=== PATIENT | female | born 1990 ===

== ENCOUNTER 2016-11-25 12:29 | Emergency (ER) | payer OTHER ==
[2016-11-25 12:37] VITALS: BP 110/59; PULSE 90; RESP 20; TEMP 97; O2SAT 100
--- NOTE | 2016-11-25 13:09 | ED PDOC ---
HPI: CCC, URI, Sore Throat Time Seen by Provider: 11/25/16 12:44 Chief Complaint (Nursing): ENT Problem Chief Complaint (Provider): ENT Problem History Per: Patient History/Exam Limitations: no limitations Onset/Duration Of Symptoms: Days (x1) Additional Complaint(s): Shahrzad Cevallos, 26 year old female presents to the ED on 11/25/16 for throat pain occurring for 1 day prior to arrival. She reports waking up this morning with difficulty swallowing. The patient has not taken any medications for this, has no pertinent past medical history, and no known drug allergies. Past Medical History Reviewed: Historical Data, Nursing Documentation, Vital Signs Vital Signs: Last Vital Signs Temp 97 F L 11/25/16 12:33 Pulse 90 11/25/16 12:33 Resp 20 11/25/16 12:33 BP 110/59 L 11/25/16 12:33 Pulse Ox 100 11/25/16 13:11 - Medical History PMH: No Chronic Diseases - Surgical History Surgical History: No Surg Hx - Family History Family History: States: Unknown Family Hx - Social History Current smoker - smoking cessation education provided: No Ex-Smoker (has not smoked in the last 12 months): No Alcohol: None Drugs: Denies - Home Medications Home Medications: Ambulatory Orders Medication Instructions Recorded Dicyclomine [Bentyl] 20 mg PO Q12 PRN #20 tab 10/24/14 Ondansetron [Zofran Odt] 4 mg PO Q6 PRN #12 odt 10/24/14 Polymyxin/Trimethoprim Sulfate 1 drop OS Q6 #1 bottle 02/17/15 [Polytrim Ophth Soln] Nitrofurantoin Macrocrystals 100 mg PO BID #14 cap 08/20/15 [Macrobid] Amoxicillin 875 mg PO BID #20 tab 11/25/16 Prednisone 50 mg PO ONCE #1 tablet 11/25/16 - Allergies Allergies/Adverse Reactions: Allergies Allergy/AdvReac Type Severity Reaction Status Date / Time No Known Allergies Allergy Verified 10/23/14 21:51 Review of Systems ROS Statement: Except As Marked, All Systems Reviewed And Found Negative Constitutional: Negative for: Fever, Chills ENT: Positive for: Throat Pain (and difficulty swallowing) Respiratory: Positive for: Cough Gastrointestinal: Negative for: Nausea, Vomiting Physical Exam - Reviewed Nursing Documentation Reviewed: Yes Vital Signs Reviewed: Yes - Physical Exam Appears: Positive for: Non-toxic, No Acute Distress Head Exam: Positive for: ATRAUMATIC, NORMAL INSPECTION, NORMOCEPHALIC Skin: Positive for: Normal Color Eye Exam: Positive for: Normal appearance ENT: Positive for: Tonsillar Exudate, Other (uvula midline ). Negative for: Normal ENT Inspection Cardiovascular/Chest: Positive for: Regular Rate, Rhythm Respiratory: Positive for: Normal Breath Sounds. Negative for: Accessory Muscle Use, Respiratory Distress Back: Positive for: Normal Inspection Extremity: Positive for: Normal ROM Neurologic/Psych: Positive for: Alert, Oriented, Gait - ECG O2 Sat by Pulse Oximetry: 100 (RA) Pulse Ox Interpretation: Normal Medical Decision Making Medical Decision Making: Initial Impression: Throat Pain Disposition - Clinical Impression Clinical Impression: Strep pharyngitis - Patient ED Disposition Is Patient to be Admitted: No Counseled Patient/Family Regarding: Diagnosis, Need For Followup, Rx Given - Disposition Disposition: Routine/Home Disposition Time: 13:06 Condition: STABLE Prescriptions: Amoxicillin 875 mg PO BID #20 tab Prednisone 50 mg PO ONCE #1 tablet Instructions: Pharyngitis (ED) Forms: [facility] ED School/Work Excuse
== END 2016-11-25 14:11 | disposition home or self-care (01) ==
LOC: H.ER 12:29
DX: J02.0 Streptococcal pharyngitis (principal); R13.10 Dysphagia, unspecified; Z87.891 Personal history of nicotine dependence

== ENCOUNTER 2018-01-02 12:32 | Emergency (ER) | payer OTHER ==
[2018-01-02 12:58] VITALS: RESP 18; O2SAT 99
[2018-01-02] MEDS ORDERED: Naproxen 500 MG TAB PO STA (13:22)
[2018-01-02] MEDS ORDERED: Naproxen 500 MG TAB PO ONE (13:29)
--- NOTE | 2018-01-02 13:32 | ED PDOC ---
HPI: CCC, URI, Sore Throat Time Seen by Provider: 01/02/18 13:07 Chief Complaint (Nursing): ENT Problem Chief Complaint (Provider): ENT Problem History Per: Patient History/Exam Limitations: no limitations Onset/Duration Of Symptoms: Days (x2) Current Symptoms Are (Timing): Still Present Location Of Pain: Throat Sick Contacts (Context): Friend(s) (Girlfriend) Additional Complaint(s): 27 y/o female with no PMHx presents to the ED complaining of sore throat, onset two days ago. Patient reports girlfriend is sick with similar symptoms and also being evaluated in ED for the same complaint. Patient reports of pain on swallowing saliva. No medications were taken [employer]. Otherwise:(-) fever, (-) chills, (-) ear pain, (-) cough, (-) headache, (-) shortness of breath, (-) nausea, (-) vomiting, (-) diarrhea, (-) abdominal pain, (-) rash, (-) other complaints at this time. LNMP: 12/26/2017 PMD: None Past Medical History Reviewed: Historical Data, Nursing Documentation, Vital Signs Vital Signs: Last Vital Signs Temp 98 F 01/02/18 14:48 Pulse 76 01/02/18 14:48 Resp 18 01/02/18 14:48 BP 122/78 01/02/18 14:48 Pulse Ox 99 01/03/18 16:37 - Medical History PMH: No Chronic Diseases - Surgical History Surgical History: No Surg Hx - Family History Family History: States: Unknown Family Hx - Social History Current smoker - smoking cessation education provided: Yes (8-9 cigarettes per day) - Home Medications Home Medications: Ambulatory Orders Medication Instructions Recorded Dicyclomine [Bentyl] 20 mg PO Q12 PRN #20 tab 10/24/14 Ondansetron [Zofran Odt] 4 mg PO Q6 PRN #12 odt 10/24/14 Polymyxin/Trimethoprim Sulfate 1 drop OS Q6 #1 bottle 02/17/15 [Polytrim Ophth Soln] Nitrofurantoin Macrocrystals 100 mg PO BID #14 cap 08/20/15 [Macrobid] Amoxicillin 875 mg PO BID #20 tab 11/25/16 Prednisone 50 mg PO ONCE #1 tablet 11/25/16 Naproxen 500 mg PO BID PRN #20 tab 01/02/18 - Allergies Allergies/Adverse Reactions: Allergies Allergy/AdvReac Type Severity Reaction Status Date / Time No Known Allergies Allergy Verified 10/23/14 21:51 Review of Systems ROS Statement: Except As Marked, All Systems Reviewed And Found Negative Constitutional: Negative for: Fever, Chills ENT: Positive for: Throat Pain, Throat Swelling. Negative for: Ear Pain Respiratory: Negative for: Cough, Shortness of Breath Gastrointestinal: Negative for: Nausea, Vomiting, Abdominal Pain, Diarrhea Skin: Negative for: Rash Physical Exam - Reviewed Nursing Documentation Reviewed: Yes Vital Signs Reviewed: Yes - Physical Exam Comments: GENERAL APPEARANCE: Patient is resting comfortably, awake, alert, oriented x 3, in no acute distress. SKIN: Warm, dry; (-) cyanosis. EYES: (-) conjunctival pallor. EOMI and painless. ENMT: Canals : (-) cerumen impaction (-) exudate or erythema; TMs: (-) bulging and (-) erythema, (-)effusion, (-) perforation,(-) vesicles. Frontal / maxillary sinuses : (-) tenderness. (-) TMJ tenderness. Pharynx: (+) erythema, (-) exudate (-) hypertrophy. Uvula midline. Airway patent: (-) stridor (-) drooling NECK: Full ROM, (+) supple, (-) stiffness, (-) tenderness, (+) 1 cm x 1 cm mobile mildly tender lymph node to the left anterior cervical chain. CHEST AND RESPIRATORY: (-) rhonchi, (-) rales, (-) wheezes; breath sounds equal bilaterally. Respirations even and nonlabored, speaking in full sentences. HEART AND CARDIOVASCULAR: (-) irregularity EXTREMITIES: (-) deformity NEURO AND PSYCH: Mental status as above. Cranial nerves grossly intact; strength symmetric. Gait steady. Speech clear. - ECG O2 Sat by Pulse Oximetry: 99 (RA) Pulse Ox Interpretation: Normal Medical Decision Making Medical Decision Making: Time: 1325 Impression: Pharyngitis Plan: -- Naproxen 500 mg PO -- Throat Culture -- Rapid Strep Group A Antign -- Re-evaluation 1425 Rapid Strep: Negative On re-evaluation, patient reports improvement of symptoms. On exam, patient remains AAOx3, in no acute distress. On exam, neck is supple, lungs CTA, cardiac RRR, neuro exam shows no focal findings. VSS, stable for discharge. Salt water gargles encouraged. Diagnostic results d/w the patient in great detail. Dx of pharyngitis d/w the patient. Based on history, exam and diagnostic results plan will be for discharge. Advised to follow up with primary care physician in 1-2 days without fail. Advised to take medication as prescribed. Return to the emergency room at any time for any new or worsening symptoms. Patient states she fully agrees with and understands discharge instructions. States that she agrees with the plan and disposition. Verbalized and repeated discharge instructions and plan. I have given the patient opportunity to ask any additional questions. Scribe Attestation: Documented by Fabio Calvillo, acting as a scribe for Ying Bond PA-C. Provider Scribe Attestation: All medical record entries made by the Scribe were at my direction and personally dictated by me. I have reviewed the chart and agree that the record accurately reflects my personal performance of the history, physical exam, medical decision making, and the department course for this patient. I have also personally directed, reviewed, and agree with the discharge instructions and disposition. Disposition - Clinical Impression Clinical Impression: Pharyngitis - Patient ED Disposition Is Patient to be Admitted: No Counseled Patient/Family Regarding: Studies Performed, Diagnosis, Need For Followup, Rx Given - Disposition Referrals: [facility] [Outside] Disposition: Routine/Home Disposition Time: 14:27 Condition: STABLE Additional Instructions: The emergency medical care you received today was directed at your acute symptoms. If you were prescribed any medication, please fill it and take as directed. It may take several days for your symptoms to resolve. Return to the Emergency Department if your symptoms worsen, do not improve, or if you have any other problems. Please contact your doctor in 2 days for re-evaluation and follow up / or call one of the physicians/clinics you have been referred to that are listed on the Patient Visit Information form that is included in your discharge packet. Bring any paperwork you were given at discharge with you along with any medications you are taking to your follow up visit. Our treatment cannot replace ongoing medical care by a primary care provider (PCP) outside of the emergency department. Prescriptions: Naproxen 500 mg PO BID PRN #20 tab PRN Reason: Pain, Moderate (4-7) Instructions: Viral Pharyngitis, Sore Throat in Adults Forms: [employer] (Y[place]i) Print Language: VINCENTIAN - POA Present On Arrival: None Results - Lab Results Lab Results: 01/02/18 13:00 Grp A Beta Strep Ag Negative
[2018-01-02 14:49] VITALS: BP 122/78; PULSE 76; TEMP 98
== END 2018-01-02 14:35 | disposition home or self-care (01) ==
LOC: H.ER 12:32
DX: J02.9 Acute pharyngitis, unspecified (principal)

== ENCOUNTER 2018-07-26 18:49 | Emergency (ER) | payer OTHER ==
[2018-07-26 19:49] VITALS: BP 110/72; PULSE 94; RESP 16; TEMP 98.1; O2SAT 98
--- NOTE | 2018-07-26 20:42 | ED PDOC ---
HPI: Influenza Time Seen by Provider: 07/26/18 20:26 Chief Complaint: Cough, Cold, Congestion Chief Complaint (Provider): Cough, Cold, Congestion History Per: Patient Exam Limitations: no limitations Onset/Duration Of Symptoms: Days (x2) Additional complaint(s):: Patient is a 27 y/o female with no significant PMHx who presents to the ED for evaluation of nasal congestion and a runny nose for the past two days. Patient reports pressure around her nose and teeth pain. Patient denies fever and ear pain. PCP: None Provided Past Medical History Reviewed: Historical Data, Nursing Documentation, Vital Signs Vital Signs: Last Vital Signs Temp 98.1 F 07/26/18 19:47 Pulse 94 H 07/26/18 19:47 Resp 16 07/26/18 19:47 BP 110/72 07/26/18 19:47 Pulse Ox 98 07/26/18 19:47 - Medical History PMH: No Chronic Diseases - Surgical History Surgical History: No Surg Hx - Family History Family History: States: Unknown Family Hx - Home Medications Home Medications: Ambulatory Orders Medication Instructions Recorded Dicyclomine [Bentyl] 20 mg PO Q12 PRN #20 tab 10/24/14 Ondansetron [Zofran Odt] 4 mg PO Q6 PRN #12 odt 10/24/14 Polymyxin/Trimethoprim Sulfate 1 drop OS Q6 #1 bottle 02/17/15 [Polytrim Ophth Soln] Nitrofurantoin Macrocrystals 100 mg PO BID #14 cap 08/20/15 [Macrobid] Amoxicillin 875 mg PO BID #20 tab 11/25/16 Prednisone 50 mg PO ONCE #1 tablet 11/25/16 Naproxen 500 mg PO BID PRN #20 tab 01/02/18 Amoxicillin/Clavulanate [Augmentin 1 tab PO BID #20 tab 07/26/18 875 MG-125 MG] - Allergies Allergies/Adverse Reactions: Allergies Allergy/AdvReac Type Severity Reaction Status Date / Time No Known Allergies Allergy Verified 07/26/18 19:47 Review of Systems ROS Statement: Except As Marked, All Systems Reviewed And Found Negative Constitutional: Negative for: Fever ENT: Positive for: Nose Discharge, Nose Congestion (and pressure), Other (Teeth pain). Negative for: Ear Pain Physical Exam - Reviewed Nursing Documentation Reviewed: Yes Vital Signs Reviewed: Yes - Physical Exam Appears: Positive for: Non-toxic, No Acute Distress Head Exam: Positive for: ATRAUMATIC, NORMAL INSPECTION, NORMOCEPHALIC Skin: Positive for: Normal Color, Warm, Dry Eye Exam: Positive for: EOMI, Normal appearance, PERRL ENT: Positive for: Nasal Congestion, Other (maxillary bilateral tenderness; no frontal tenderness) Neck: Positive for: Normal, Painless ROM, Supple Cardiovascular/Chest: Positive for: Regular Rate, Rhythm. Negative for: Murmur Respiratory: Positive for: Normal Breath Sounds. Negative for: Respiratory Distress Extremity: Positive for: Normal ROM. Negative for: Pedal Edema, Deformity Neurologic/Psych: Positive for: Alert, Oriented. Negative for: Motor/Sensory Deficits Medical Decision Making Medical Decision Making: Time: 2039 Impression: Acute Maxillary Sinusitis Plan: - 875/125 Augmentin Scribe Attestation: Documented by Roman Craven, acting as a scribe for KRISTAL Davalos. Provider Scribe Attestation: All medical record entries made by the Scribe were at my direction and personally dictated by me. I have reviewed the chart and agree that the record accurately reflects my personal performance of the history, physical exam, medical decision making, and the department course for this patient. I have also personally directed, reviewed, and agree with the discharge instructions and disposition. - ECG O2 Sat by Pulse Oximetry: 98 (RA) Pulse Ox Interpretation: Normal Disposition - Clinical Impression Clinical Impression: Acute maxillary sinusitis Doctor Will See Patient In The: Office - Disposition Disposition: Routine/Home Disposition Time: 21:00 Condition: STABLE Prescriptions: Amoxicillin/Clavulanate [Augmentin 875 MG-125 MG] 1 tab PO BID #20 tab Instructions: Sinusitis in Adults, Sinusitis, Adult (DC), Bacterial Upper Respiratory Infection, Adult (DC) Forms: [employer] ([place]ayan)
== END 2018-07-26 20:50 | disposition home or self-care (01) ==
LOC: H.ER 18:49
DX: J01.00 Acute maxillary sinusitis, unspecified (principal)